=== PATIENT | female | born 1950 | race Caucasian/White ===

== ENCOUNTER 2019-03-29 10:47 | Outpatient (CLI) | payer OTHER | END 2019-03-29 11:16 | disposition home or self-care (01) | LOC: RAD 10:47 | DX: M54.5 Low back pain (principal); S90.31XA Contusion of right foot, initial encounter ==

== ENCOUNTER 2019-03-29 13:13 | Outpatient (CLI) | payer OTHER | END 2019-03-29 15:00 | disposition home or self-care (01) | LOC: LAB 13:13 | DX: E88.89 Other specified metabolic disorders (principal); E55.9 Vitamin D deficiency, unspecified; M85.88 Other specified disorders of bone density and structure, other site; M81.8 Other osteoporosis without current pathological fracture; E56.1 Deficiency of vitamin K; E21.2 Other hyperparathyroidism ==

== ENCOUNTER 2019-04-23 12:23 | Outpatient (CLI) | payer OTHER | END 2019-04-23 12:26 | disposition home or self-care (01) | LOC: RAD 12:23 | DX: S92.511A Displaced fracture of proximal phalanx of right lesser toe(s), initial encounter for closed fracture (principal) ==

== ENCOUNTER 2025-02-09 09:00 | Day surgery (SDC) | payer OTHER ==
[2025-02-09] MEDS ORDERED: fentaNYL CITRATE 50 MCG/ML AMPUL IV PUSH ONE (12:15)
[2025-02-09] MEDS ORDERED: MIDAZOLAM HCL 2 MG/2 ML VIAL IV ONE (12:15)
[2025-02-09] MEDS ORDERED: DIPHENHYDRAMINE HCL 50 MG/ML VIAL 1ML IV ONE (12:15)
[2025-02-09] MEDS ORDERED: ONDANSETRON HCL 2 MG/ML VIAL IV ONE (12:15)
== END 2025-02-09 13:50 | disposition home or self-care (01) ==
LOC: AMB-ENDOS 09:00
PROVIDERS: ATTEND Colon & Rectal Surgery
DX: K63.5 Polyp of colon (principal); K62.1 Rectal polyp; K57.30 Diverticulosis of large intestine without perforation or abscess without bleeding; Z12.11 Encounter for screening for malignant neoplasm of colon